=== PATIENT | male | born 1960 | race Caucasian/White ===

== ENCOUNTER 2022-01-20 14:04 | Emergency (ER) | payer MEDICARE, MEDICAID, SELFPAY ==
[2022-01-20 14:37] VITALS: BP 134/75; PULSE 114; RESP 18; TEMP 36.2; O2SAT 95; BMI 37.4
--- NOTE | 2022-01-20 15:35 | CTR_ITS ---
PROCEDURE INFORMATION: Exam: CT Lumbar Spine Without Contrast Exam date and time: 01/20/2022 4:01 PM Age: 61 years old Clinical indication: Pain and injury or trauma; Fall; Blunt trauma (contusions or hematomas); Low back pain; Additional info: Back pain; Difficulty with R leg/gait disturbance TECHNIQUE: Imaging protocol: Computed tomography images of the lumbar spine without contrast. Radiation optimization: All CT scans at this facility use at least one of these dose optimization techniques: automated exposure control; mA and/or kV adjustment per patient size (includes targeted exams where dose is matched to clinical indication); or iterative reconstruction. COMPARISON: CR XR lumbar spine 2-3V* [id number] 12/15/2021 2:14 PM RADIATION DOSE METRICS: Total DLP (mGy-cm): 2442.5 FINDINGS: Bones/joints: Multilevel vacuum disc degeneration with endplate osteophytes and facet arthropathy. No acute lumbar spine fracture subluxation. Discs/Spinal canal/Neural foramina: No large disc protrusion. Prominent posterior disc osteophyte complex are noted at L1-L2,, L3-L4 and L4-L5 resulting in some central canal stenosis. Hypertrophic endplate and facet elements probably result in some foraminal stenoses at multiple levels, most prominent at L1-L2, L3-L4 and L4-L5. Clinical correlation is needed. MRI correlation may also be considered if clinically indicated. Soft tissues: Unremarkable. CT/CT lumbar spine wo con* [id number] IMPRESSION: No acute lumbar spine fracture or subluxation. Other findings as above.
--- NOTE | 2022-01-20 15:36 | XRR_ITS ---
PROCEDURE INFORMATION: Exam: XR Chest Exam date and time: 01/20/2022 3:53 PM Age: 61 years old Clinical indication: Other: Increased le swelling TECHNIQUE: Imaging protocol: XR of the chest. Views: 1 view. COMPARISON: No relevant prior studies available. FINDINGS: Lungs: The lung bases are suboptimally assessed due to technique however the upper lungs are clear of focal consolidation. Streaky left basilar opacity is of uncertain chronicity and may represent atelectasis/scarring. Follow-up/comparison prior study may be considered if there is a concern for developing pneumonia. Pleural spaces: Unremarkable. No pleural effusion. No pneumothorax. Heart/Mediastinum: Cardiac silhouette appears normal in size. No obvious vascular congestion. Bones/joints: No acute osseous findings. Other findings: Single view was submitted. XR/XR chest 1V portable [id number] IMPRESSION: Streaky left basilar opacity. See discussion above.
--- NOTE | 2022-01-20 15:36 | W.ED.GENADLT ---
HPI - General Adult General: Chief complaint: Extremity Injury, Lower Stated complaint: Has fallen several times, cant walk Time Seen by Provider: 01/20/22 14:48 Source: patient and family Mode of arrival: wheelchair Limitations: no limitations History of Present Illness: Patient is a 61-year-old female who presents to ED today along with a family/friend for a complaint of bilateral leg swelling, right leg pain, back pain, and difficulty with ambulation. Patient has significant cognitive delays therefore obtaining a reliable and adequate history was incredibly difficult. He does seem to tell me that his leg swelling seems to be worse than normal. The family/friend member is able to show me a list of his medications that include lisinopril/HCTZ, potassium, and furosemide (40mg daily). Family/friend states that patient has had trouble ambulating secondary to right leg pain for about a month now. They state at some point he had a fall and thinks maybe he injured his back as he is also complained of this. He reportedly had normal lumbar XRs through his PCP at [facility]. Patient does not complain of numbness or tingling to his legs. He is not complaining of chest pain, shortness of breath, difficulty breathing. Patient and family/friend has not noticed any redness or warmth to the extremities. 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 Patient verifies this deformity has been present since . Onset (ago): week(s) Associated symptoms: Deny chest pain, confusion, dyspnea, headache(s) or rash Treatments prior to arrival: none Review of Systems Const: Denies: fever(s), chills or body aches Card: Denies: chest pain Resp: Denies: dyspnea GI: Denies: abdominal pain : Denies: flank pain, dysuria or hematuria Musc: Reports: back pain, extremity pain and extremity swelling; Denies: neck pain, joint pain, joint swelling, joint redness, joint warmth, joint stiffness, limited range of motion, muscle cramps or decrease in muscle mass Skin/Breast: Denies: rash Neuro: Reports: difficulty walking; Denies: headache(s), numbness in extremities, sensory changes, dizziness or confusion Physical Exam Const: COMMON NORMALS: no acute distress and alert EXAM LIMITATIONS: other limitations (cognitive delays-at baseline per friend/family) GENERAL APPEARANCE: cooperative NUTRITIONAL APPEARANCE: overweight ORIENTATION/CONSCIOUSNESS: Yes awake, Yes oriented to person and Yes oriented to place HENMT: COMMON NORMALS: normocephalic and atraumatic HEAD & SCALP: normal to inspection, normocephalic and atraumatic FACE & SINUS: normal facial exam TEETH & GINGIVA: Yes edentulous Eye: GENERAL EYE: appearance normal, both eyes and all related structures Neck/C-Spine: COMMON NORMALS: full ROM GENERAL: Yes normal visual inspection CERVICAL SPINE: Yes cervical ROM normal, No pain with cervical ROM, No Cervical spine tenderness, No step off deformity and No Paracervical muscle tenderness Resp: COMMON NORMALS: normal respiratory effort and clear to auscultation bilaterally AUSCULTATION: clear to auscultation bilaterally Cardio: COMMON NORMALS: regular rate and regular rhythm RATE: regular rate RHYTHM: regular rhythm GI: COMMON NORMALS: Normal to inspection, nondistended, normoactive bowel sounds present, Soft to palpation and non-tender PALPATION: Yes Soft to palpation : COMMON NORMALS: Yes no CVA tenderness BLADDER/KIDNEY EXAM: Yes no CVA tenderness Back/Pelvis: COMMON NORMALS: no CVA tenderness THORACIC SPINE/UPPER BACK: Yes normal to inspection, No thoracic spinal tenderness, No paraspinal muscle tenderness and No paraspinal muscle spasm LUMBAR SPINE/LOWER BACK: Yes lumbar spinal tenderness, No paraspinal muscle tenderness, No paraspinal muscle spasm and Yes straight leg raise negative bilaterally PELVIS: Yes buttocks normal SACROILIAC JOINTS: Yes SI joint(s) abnormal (maybe some tenderness on R ? exam inconsistent ) SACRUM: no tenderness COCCYX: no tenderness Extremity: COMMON NORMALS: full ROM, capillary refill normal and no calf tenderness NARRATIVE EXTREMITY EXAM: bilateral symmetrical LE pitting edema; pulses/cap refill intact; he states sensory is equal bilaterally GENERAL: Yes normal exam except as noted Neuro: ROBERT COMA SCALE: document [facility] findings Robert coma scale eye opening: Spontaneous Solomon coma scale verbal response: Orientated Robert coma scale motor response: Obey commands Solomon coma scale total score: 15 COMMON NORMALS: moves all extremities, no focal motor deficits and no sensory deficits noted SENSORIUM/ORIENTATION: Yes alert, Yes oriented to person and Yes oriented to place DEEP TENDON REFLEXES: Right patellar reflex intensity grade: 2+ and Left patellar reflex intensity grade: 2+ OTHER: decreased strength to bilateral LEs compared to what I would feel would be expected for patient however poor effort/possible poor understanding of commands noted; he is able at some times flex/ext against resistance and testing does seem to be equal bilaterally Skin: COMMON NORMALS: no rashes or lesions noted GENERAL SKIN EXAM: no rashes or lesions noted TRAUMA: no lacerations or abrasions Course Vital Signs: Vital signs: Vital Signs Temperature 97.1 F L 01/20/22 14:37 Pulse Rate 94 01/20/22 16:17 Respiratory Rate 16 01/20/22 16:17 Blood Pressure 134/75 01/20/22 14:37 Pulse Oximetry 95 01/20/22 16:17 [facility] - General Adult Medical Decision Making Patient is a 61-year-old male with fairly significant cognitive delays making a history and physical exam incredibly difficult is here with a family/friend for complaints of bilateral leg swelling, right leg pain/trouble ambulating over the past month, and back pains. Patient's vital signs are stable. His blood work is fairly unremarkable. He does have bilateral symmetrical pitting edema to his lower extremities. He normally takes furosemide 40mg for this. He does not complain of shortness of breath or difficulty breathing. CXR does not appear grossly fluid overloaded. Did comment on a streaky left basilar opacity although given clinical setting I do not feel represents acute pneumonia. CT scan shows several chronic osteophyte formations but nothing to grossly explain his right leg pain. Exam is very inconsistent fortunately. Patient attempted ambulation with myself as well as the DISTRICT SALES REPRESENTATIVE and stated he could barely place weight on the right leg and ultimately failed trial however shortly after he was given a walker and was able to walk around the room seemingly without much difficulty. Strength testing appears equal bilaterally although again poor effort/poor understanding of commands noted. Reports sensory as equal bilaterally. He does not complain of any urinary/bowel retention/incontinence. Certainly some of his pain could be secondary to his worsening edema. He was given IV lasix and potassium here. We will double his dose of lasix and potassium at home over the next 5 days. Strongly recommend he follow-up with his primary care provider as soon as possible for further evaluation. Patient and family/friend verbalized understanding of current instructions. Return to ED precautions given. Lab Data : 01/20/22 15:53 01/20/22 15:53 Radiology Impressions Lumbar Spine CT 01/20/22 15:35 IMPRESSION: No acute lumbar spine fracture or subluxation. Other findings as above. Chest X-Ray 01/20/22 15:36 IMPRESSION: Streaky left basilar opacity. See discussion above. Laboratory Results WBC 7.5 10^3/uL (4.0-10.0) 01/20/22 15:53 RBC 5.11 10^6/uL (4.1-5.3) 01/20/22 15:53 Hgb 15.2 g/dL (11.7-16.6) 01/20/22 15:53 Hct 45.1 % (42.0-52.0) 01/20/22 15:53 MCV 88.3 fl (80-94) 01/20/22 15:53 MCH 29.7 pg (28.0-34.0) 01/20/22 15:53 MCHC 33.7 g/dL (30.0-36.0) 01/20/22 15:53 RDW 12.8 % (12.1-15.1) 01/20/22 15:53 Plt Count 201 10^3/cmm (130-400) 01/20/22 15:53 MPV 9.2 fL (7.4-10.4) 01/20/22 15:53 Neut % (Auto) 56.3 % 01/20/22 15:53 Lymph % (Auto) 32.3 % 01/20/22 15:53 [place] % (Auto) 9.4 % 01/20/22 15:53 Eos % (Auto) 1.3 % 01/20/22 15:53 Baso % (Auto) 0.4 % 01/20/22 15:53 Neut # (Auto) 4.23 10^3/uL (1.8-7.7) 01/20/22 15:53 Lymph # (Auto) 2.4 10^3/uL (0.8-4.8) 01/20/22 15:53 [place] # (Auto) 0.7 10^3/uL (0.2-0.9) 01/20/22 15:53 Eos # (Auto) 0.1 10^3/uL (0.0-0.8) 01/20/22 15:53 Baso # (Auto) 0.0 10^3/uL (0.0-0.1) 01/20/22 15:53 Nucleated RBC % (auto) 0 % 01/20/22 15:53 Nucleated RBCs # 0.0 /100WBC 01/20/22 15:53 Sodium 134 mmol/L (136-145) L 01/20/22 15:53 Potassium 3.6 mmol/L (3.5-5.1) 01/20/22 15:53 Chloride 90 mmol/L (98-107) L 01/20/22 15:53 Carbon Dioxide 32 mmol/L (22-29) H 01/20/22 15:53 Anion Gap 15.6 (5-19) 01/20/22 15:53 BUN 31 mg/dL (8-23) H 01/20/22 15:53 Creatinine 0.9 mg/dL (0.7-1.2) 01/20/22 15:53 GFR Calculation 85.5 mL/min (90-130) L 01/20/22 15:53 Glucose 111 mg/dL (65-115) 01/20/22 15:53 Calculated Osmolality 285 mOsm/kg (285-295) 01/20/22 15:53 Calcium 9.8 mg/dL (8.5-10.5) 01/20/22 15:53 Total Bilirubin 0.2 mg/dL (0.15-1.2) 01/20/22 15:53 AST 19 U/L (0-40) 01/20/22 15:53 ALT 31 U/L (0-41) 01/20/22 15:53 Alkaline Phosphatase 53 IU/L (40-130) 01/20/22 15:53 NT-Pro-B Natriuret Pep 5 pg/mL (0-125) 01/20/22 15:53 Total Protein 7.4 g/dL (6.6-8.7) 01/20/22 15:53 Albumin 4.6 g/dL (3.5-5.2) 01/20/22 15:53 Globulin 2.8 g/dL (1.3-4.6) 01/20/22 15:53 Discharge Plan Discharge Patient Disposition: Home Clinical Impression: Bilateral edema of lower extremity Condition: Stable Discharge Orders: Discharge ED (Routine); Ordered 01/20/22 Ordered By: Samantha Rocha Activity Restrictions/Additional Instructions: As we discussed we will have patient take his furosemide/lasix twice daily. He needs to take his potassium twice daily as well. Please do this over the next 5 days and then resume normal dosing of these medications. Please contact his primary care provider as soon as possible for further follow-up. Coding Level of Care Code ED Robotics Specialist for Janelle Fwpriya Exam Comprehensive
[2022-01-20 15:57] LABS: Basophils % 0.4 %; Eosinophils # 0.1 10^3/uL (0.0-0.8); Eosinophils % 1.3 %; Hematocrit 45.1 % (42.0-52.0); Hemoglobin 15.2 g/dL (11.7-16.6); Lymphocytes # 2.4 10^3/uL (0.8-4.8); Lymphocytes % 32.3 %; Mean Corpuscular HGB Conc 33.7 g/dL (30.0-36.0); Mean Corpuscular Hemoglobin 29.7 pg (28.0-34.0); Mean Corpuscular Volume 88.3 fl (80-94); Mean Platelet Volume 9.2 fL (7.4-10.4); Monocytes # 0.7 10^3/uL (0.2-0.9); Monocytes % 9.4 %; Neutrophils # 4.23 10^3/uL (1.8-7.7); Neutrophils % 56.3 %; Nucleated Red Blood Cells % 0 %; Platelet Count 201 10^3/cmm (130-400); Red Blood Count 5.11 10^6/uL (4.1-5.3); Red Cell Distribution Width 12.8 % (12.1-15.1); White Blood Count 7.5 10^3/uL (4.0-10.0)
[2022-01-20 16:17] VITALS: PULSE 94; RESP 16; O2SAT 95
[2022-01-20 16:41] LABS: Alanine Aminotransferase 31 U/L (0-41); Albumin Level 4.6 g/dL (3.5-5.2); Alkaline Phosphatase 53 IU/L (40-130); Anion Gap 15.6 (5-19); Aspartate Amino Transferase 19 U/L (0-40); Blood Urea Nitrogen 31 mg/dL (8-23); Calcium 9.8 mg/dL (8.5-10.5); Carbon Dioxide 32 mmol/L (22-29); Chloride 90 mmol/L (98-107); Globulin 2.8 g/dL (1.3-4.6); Glomerular Filtration Rate 85.5 mL/min (90-130); Glucose 111 mg/dL (65-115); NT Pro B Type Natriuretic Pept 5 pg/mL (0-125); Osmolality Calculated 285 mOsm/kg (285-295); Potassium 3.6 mmol/L (3.5-5.1); Sodium 134 mmol/L (136-145); Total Bilirubin 0.2 mg/dL (0.15-1.2); Total Protein 7.4 g/dL (6.6-8.7)
[2022-01-20] MEDS: potassium chloride ER 20 mEq Tablet 40 MEQ PO (17:07)
[2022-01-20] MEDS: FUROsemide 10 mg/mL SDV 10mL 60 MG IVP (17:08)
== END 2022-01-20 17:14 | disposition home or self-care (01) ==
PROVIDERS: Emergency Provider Physician Assistant
DX: R60.0 Localized edema (principal)
CPT/HCPCS: 71045; 72131; 80053; 83880; 85025; 96374; 99284; J1940

== ENCOUNTER → 2023-03-16 13:22 | Outpatient (BNVA) | payer MEDICARE, MEDICAID, SELFPAY | PROVIDERS: Visit Provider Podiatrist Foot & Ankle Surgery | DX: I73.9 Peripheral vascular disease, unspecified; M21.171 Varus deformity, not elsewhere classified, right ankle | CPT/HCPCS: 73600; 73630; 99214 ==

== ENCOUNTER → 2023-06-15 14:13 | Outpatient (BNVA) | payer MEDICARE, MEDICAID, SELFPAY | PROVIDERS: PCP Family Medicine; Visit Provider Podiatrist Foot & Ankle Surgery | DX: M21.171 Varus deformity, not elsewhere classified, right ankle (principal); I73.9 Peripheral vascular disease, unspecified | CPT/HCPCS: 99213 ==